=== PATIENT | female | born 1970 | race Two or more races ===

== ENCOUNTER 2018-09-28 19:07 | Inpatient (IN) | payer BC ==
[~2018-09-28] VITALS: Ht 165.1 cm; Wt 58.1 kg
--- NOTE | 2018-09-28 19:30 | NUR ---
BIBF. C/O "BEEN HAVING SWOLLEN LEGS AND YELLOW EYES +CP FOR AROUND X5 DAYS NOW" -SOB -DIZZY -N/V AOX4. AMBULATORY.
[2018-09-28 19:55] LABS: APPEARANCE,URINE Clear (CLEAR); BILIRUBIN,URINE LARGE (NEGATIVE); BLOOD, URINE Negative Ery/uL (NEGATIVE); KETONES,URINE Trace (NEGATIVE); LEUKOCYTE ESTERASE ,URINE Negative (NEGATIVE); NITRITE, URINE Negative (NEGATIVE); PROTEIN,URINE Trace mg/dl (NEGATIVE); UGLUCOSE Negative (NEGATIVE); UROBILINOGEN,URINE 0.2 EU/dL (0.2)
[2018-09-28 19:56] LABS: COLOR,URINE DARK YELLOW (YELLOW)
[2018-09-28 20:02] LABS: BASOPHILS # (AUTO) 0.1 /CMM (0.0-0.2); BASOPHILS % (AUTO) 0.9 % (0.0-2.0); EOSINOPHILS % (AUTO) 1.1 % (0.0-6.0); HEMATOCRIT 42 % (33-45); LYMPHOCYTES # (AUTO) 1.2 /CMM (0.8-4.8); LYMPHOCYTES % (AUTO) 16.8 % (20.0-44.0); MEAN CORPUSCULAR HGB CONC 33 g/dl (31.0-36.0); MEAN CORPUSCULAR VOLUME 96 fL (82-100); MONOCYTES # (AUTO) 0.9 /CMM (0.1-1.30); MONOCYTES % (AUTO) 12.2 % (2.0-12.0); NEUTROPHILS # (AUTO) 4.9 /CMM (1.8-8.9); PLATELET COUNT (AUTO) 139 /CMM (150-450); RED BLOOD CELL COUNT(AUTO) 4.39 MIL/uL (4.0-5.2); WHITE BLOOD COUNT (AUTO) 7.2 K/uL (4.3-11.0)
[2018-09-28 20:11] LABS: BACTERIA,URINE None seen /HPF (None Seen); RBC,URINE 0-2 /HPF (0-2); SQUAMOUS EPITHELIAL CELL,UR Few /HPF (None Seen); WBC,URINE 0-2 /HPF (0-3)
[2018-09-28 20:18] LABS: CALCIUM, SERUM 8.5 mg/dL (8.5-10.1); CREATININE 0.7 mg/dL (0.6-1.3); POTASSIUM 3.9 mmol/L (3.5-5.1)
[2018-09-28 20:24] LABS: ALBUMIN 2.5 g/dL (3.4-5.0); BILIRUBIN,DIRECT 8.4 mg/dL (0.0-0.2); BILIRUBIN,TOTAL 12.5 mg/dL (0.2-1.0); TOTAL PROTEIN, SERUM 6.5 g/dL (6.4-8.2)
[2018-09-28] MEDS ORDERED: IV NS 0.9% 1,000 ML BAG IV ONE (21:00)
--- NOTE | 2018-09-28 23:13 | NUR ---
REPORT GIVEN TO HUMZA BURGOS.
[2018-09-28] MEDS ORDERED: CT SWABBABLE VALVE TRANS SET 1 EA INFUS.SET MC ONE (23:55)
[2018-09-28] MEDS ORDERED: IOHEXOL-300 100 ML VIAL IV ONE (23:55)
[2018-09-28] MEDS ORDERED: IV NS 0.9% 250 ML IV ONE (23:55)
[2018-09-29] MEDS ORDERED: MAG HYDROX/AL HYDROX/SIMETH 30 ML UDC PO PRN
[2018-09-29] MEDS ORDERED: ONDANSETRON HCL/PF 4 MG/2 ML VIAL IVP PRN
[2018-09-29] MEDS ORDERED: ACETAMINOPHEN 325 MG TABLET PO PRN
[2018-09-29] MEDS ORDERED: Z GUARD REMEDY 2 OZ OINT TP PRN
[2018-09-29] MEDS ORDERED: MAGNESIUM HYDROXIDE 30 ML UDC PO PRN
[2018-09-29] MEDS ORDERED: KETOROLAC TROMETHAMINE 10 MG TABLET PO PRN
--- NOTE | 2018-09-29 00:15 | NUR ---
RECEIVED PATIENT FROM ER VIA GURNEY IN STABLE CONDITION. PATIENT AWAKE A/OX4 AND ABLE TO VERBALIZE NEEDS. NO C/O PAIN OR DISCOMFORT. LAC #20 GAUGE INTACT AND PATENT. AT BEDSIDE. CONSENT FOR HIDA OBTAINED. PATIENT CALM AND COMPLIANT WITH NURSING CARE. ENCOURAGED USE OF CALL LIGHT FOR ASSISTANCE AND VERBALIZED GOOD UNDERSTANDING. BED IN LOW LOCK SETTING. ROOM FREE OF CLUTTER AND BELONGINGS KEPT NEAR BEDSIDE. WILL CONTINUE TO MONITOR
[2018-09-29 06:21] LABS: BASOPHILS % (AUTO) 0.3 % (0.0-2.0); EOSINOPHILS % (AUTO) 1.2 % (0.0-6.0); HEMATOCRIT 38 % (33-45); LYMPHOCYTES # (AUTO) 1.1 /CMM (0.8-4.8); LYMPHOCYTES % (AUTO) 16.1 % (20.0-44.0); MEAN CORPUSCULAR HGB CONC 34 g/dl (31.0-36.0); MEAN CORPUSCULAR VOLUME 94 fL (82-100); MONOCYTES # (AUTO) 0.7 /CMM (0.1-1.30); MONOCYTES % (AUTO) 10.6 % (2.0-12.0); NEUTROPHILS # (AUTO) 4.8 /CMM (1.8-8.9); NEUTROPHILS % (AUTO) 71.8 % (43.0-81.0); PLATELET COUNT (AUTO) 118 /CMM (150-450); RED BLOOD CELL COUNT(AUTO) 4.05 MIL/uL (4.0-5.2); WHITE BLOOD COUNT (AUTO) 6.7 K/uL (4.3-11.0)
[2018-09-29 06:43] LABS: PREALBUMIN 5.3 MG/DL (18.0-35.7); THYROID STIMULATING HORMONE 0.473 uIU/mL (0.358-3.74)
[2018-09-29 06:44] LABS: ALBUMIN 2.2 g/dL (3.4-5.0); BILIRUBIN,DIRECT 8.4 mg/dL (0.0-0.2); BILIRUBIN,TOTAL 12.2 mg/dL (0.2-1.0); CALCIUM, SERUM 7.9 mg/dL (8.5-10.1); CREATININE 0.7 mg/dL (0.6-1.3); MAGNESIUM 1.7 mg/dL (1.8-2.4); PHOSPHORUS 2.6 mg/dL (2.5-4.9); POTASSIUM 3.6 mmol/L (3.5-5.1); TOTAL PROTEIN, SERUM 5.7 g/dL (6.4-8.2)
--- NOTE | 2018-09-29 06:48 | NUR ---
MS RN NOTES PATIENT ASLEEP IN BED WITH NO DISTRESS NOTED. PERIPHERAL INTACT AND PATENT. AT BEDSIDE. BED IN LOW LOCK SETTING. ROOM FREE OF CLUTTER AND BELONGINGS KEPT NEAR BEDSIDE. WILL ENDORSE TO ONCOMING SHIFT.
[2018-09-29] MEDS: PANTOPRAZOLE 40 MG TABLET.DR PO SCH (07:30)
[2018-09-29 08:00] VITALS: BP 119/64
--- NOTE | 2018-09-29 10:35 | NUR ---
patient seen by dr. Foley
--- NOTE | 2018-09-29 10:40 | NUR ---
per : hydration LR 150 ml/hr
--- NOTE | 2018-09-29 12:00 | NUR ---
patient picked up for HIDA test by radiology staff
--- NOTE | 2018-09-29 13:10 | NUR ---
patient came back from procedure in stable condition , denies discomfort and pain
[2018-09-29] MEDS: Magnesium 1GM/D5W 100ML PREMIX 100 ML IV SCH ×2 (13:20→16:40)
--- NOTE | 2018-09-29 14:00 | NUR ---
FIDEL result sent to dr. Foley
[2018-09-29 16:00] VITALS: BP 119/70
--- NOTE | 2018-09-29 16:10 | NUR ---
MRI check list obtained and sighed by patient
--- NOTE | 2018-09-29 17:55 | NUR ---
Patient taken for MRSP test by radiology staff
--- NOTE | 2018-09-29 18:55 | NUR ---
Patient came back from MRSP test in stable condition , no distress noted, accompanied by . IV assess remain intact and patent. Call light within reach, safety measures in place. Will endorse to next shift for RUEL.
--- NOTE | 2018-09-29 19:35 | NUR ---
MS/RN OPENING NOTES PT RECEIVED AWAKE, RESTING COMFORTABLY IN BED. ON ROOM AIR, BREATHING EVEN AND UNLABORED. IN NO ACUTE DISTRESS. DENIES SOB AND PAIN AT THIS TIME. IV TO LAC PATENT AND INTACT RUNNING IV MAGNESIUM AT THIS TIME. NO NEEDS EXPRESSED. BED IN LOW/LOCKED POSITION WITH CALL LIGHT IN REACH. HOB ELEVATED. BILAT. UPPER SIDE RAILS IN PLACE. WILL CONTINUE TO MONITOR
[2018-09-29 20:00] VITALS: BP 122/69
[2018-09-29] MEDS: IV LR 1000 ML 1,000 ML IV PRN (23:05)
--- NOTE | 2018-09-30 02:44 | NUR ---
MS/RN NOTES IV TO LAC LEAKING AND PT'S ARM SWOLLEN NON PITTING. IV REMOVED AND ARM ELEVATED ON PILLOW. NEW IV INSERTED TO RFA #22. GOOD BLOOD RETURN NOTED AND FLUSHES WELL. IVF RESUMED. ICE WATER PROVIDED. NO ADDITIONAL NEEDS EXPRESSED AT THIS TIME.
--- NOTE | 2018-09-30 06:54 | NUR ---
MS/RN CLOSING NOTES PT ASLEEP, AT BEDSIDE. RESPONSIVE TO NAME. REMAINS ON ROOM AIR, BREATHING EVEN AND UNLABORED. DENIES SOB AND PAIN AT THIS TIME. NO SIGNIFICANT CHANGES OVERNIGHT. IV TO RFA PATENT AND INTACT RUNNING IVF ORDERED. ALL NEEDS ANTICIPATED. BED REMAINS IN LOW/LOCKED POSITION WITH CALL LIGHT IN REACH, BILAT. UPPER SIDE RAILS IN PLACE AND HOB ELEVATED. WILL ENDORSE TO DAY SHIFT RN RUEL.
[2018-09-30 08:00] VITALS: BP 130/70
[2018-09-30] MEDS: PANTOPRAZOLE 40 MG TABLET.DR PO SCH (08:45)
[2018-09-30] MEDS: IV LR 1000 ML 1,000 ML IV PRN ×2 (08:46→17:48)
--- NOTE | 2018-09-30 11:30 | NUR ---
SPOKE WITH OVER THE PHONE: NEW ORDER ADVANCE DIET TO SOFT AND STAT LIVER FUNCTION TEST
[2018-09-30 12:35] LABS: BILIRUBIN,DIRECT 9.4 mg/dL (0.0-0.2); BILIRUBIN,TOTAL 13.7 mg/dL (0.2-1.0); TOTAL PROTEIN, SERUM 5.5 g/dL (6.4-8.2)
[2018-09-30 12:46] LABS: BASOPHILS % (AUTO) 0.4 % (0.0-2.0); EOSINOPHILS % (AUTO) 1.5 % (0.0-6.0); HEMATOCRIT 39 % (33-45); HEMOGLOBIN 13.3 g/dL (11.5-14.8); LYMPHOCYTES % (AUTO) 17.6 % (20.0-44.0); MEAN CORPUSCULAR HGB CONC 34 g/dl (31.0-36.0); MEAN CORPUSCULAR VOLUME 94 fL (82-100); MONOCYTES # (AUTO) 0.6 /CMM (0.1-1.30); MONOCYTES % (AUTO) 11.5 % (2.0-12.0); NEUTROPHILS # (AUTO) 3.9 /CMM (1.8-8.9); RED BLOOD CELL COUNT(AUTO) 4.15 MIL/uL (4.0-5.2); WHITE BLOOD COUNT (AUTO) 5.6 K/uL (4.3-11.0)
[2018-09-30 12:52] LABS: BILIRUBIN,DIRECT 9.2 mg/dL (0.0-0.2); BILIRUBIN,TOTAL 13.8 mg/dL (0.2-1.0)
--- NOTE | 2018-09-30 13:00 | NUR ---
PATIENT TOLERATED SOFT DIET WELL.
[2018-09-30 13:55] LABS: PLATELET COUNT (AUTO) 110 /CMM (150-450)
--- NOTE | 2018-09-30 14:35 | NUR ---
STOOL SAMPLE SENT TO LABORATORY
--- NOTE | 2018-09-30 14:49 | NUR ---
PATIENT NPO EXEPT MEDS AND ICED WATER PER ISMAEL N.P. DUE TO STOMACH DISTENTION AFTER FOOD
[2018-09-30 15:38] LABS: OCCULT BLOOD STOOL POSITIVE (NEGATIVE)
[2018-09-30 16:00] VITALS: BP 112/62
--- NOTE | 2018-09-30 19:22 | NUR ---
PATIENT REMAINS ON ROOM AIR, BREATHING EVEN AND UNLABORED. IV TO RFA PATENT AND INTACT RUNNING IVF ORDERED. ALL NEEDS ANTICIPATED. BED REMAINS IN LOW/LOCKED POSITION WITH CALL LIGHT IN REACH, BILAT. UPPER SIDE RAILS IN PLACE AND HOB ELEVATED.
--- NOTE | 2018-09-30 19:25 | NUR ---
MS RN OPENING NOTES Received patient A/O x4, awake on bed, with family at bedside. On RA, no SOB/respiratory distress noted. No complaints made at this time. Call light within easy reach. Will continue to monitor accordingly.
[2018-09-30 20:00] VITALS: BP 121/73
--- NOTE | 2018-10-01 06:36 | NUR ---
MS RN CLOSING NOTES Patient asleep on bed at this time, easily awaken. On RA, no SOB/respiratory distress noted. Still jaudice, with minimal complaints of pain managed with warm packs, no pain meds asked. All due meds given as ordered, no ASE noted. With patent peripheral IV line RFA G#22 with LR infusing well @ 150ml/hr. All nursing needs attended, no new unusualities noted. Kept bed low and locked, call light within easy reach. Endorsed to the next shift.
[2018-10-01 06:48] LABS: BASOPHILS % (AUTO) 0.7 % (0.0-2.0); EOSINOPHILS % (AUTO) 2.3 % (0.0-6.0); HEMATOCRIT 38 % (33-45); HEMOGLOBIN 13.1 g/dL (11.5-14.8); LYMPHOCYTES # (AUTO) 1.2 /CMM (0.8-4.8); LYMPHOCYTES % (AUTO) 20.9 % (20.0-44.0); MEAN CORPUSCULAR HGB CONC 35 g/dl (31.0-36.0); MEAN CORPUSCULAR VOLUME 94 fL (82-100); MONOCYTES # (AUTO) 0.7 /CMM (0.1-1.30); MONOCYTES % (AUTO) 11.3 % (2.0-12.0); NEUTROPHILS # (AUTO) 3.7 /CMM (1.8-8.9); NEUTROPHILS % (AUTO) 64.8 % (43.0-81.0); PLATELET COUNT (AUTO) 103 /CMM (150-450); RED BLOOD CELL COUNT(AUTO) 4.06 MIL/uL (4.0-5.2); WHITE BLOOD COUNT (AUTO) 5.8 K/uL (4.3-11.0)
[2018-10-01 07:06] LABS: ALBUMIN 1.9 g/dL (3.4-5.0); CALCIUM, SERUM 7.2 mg/dL (8.5-10.1); CREATININE 0.7 mg/dL (0.6-1.3); MAGNESIUM 1.8 mg/dL (1.8-2.4); PHOSPHORUS 2.9 mg/dL (2.5-4.9); POTASSIUM 3.8 mmol/L (3.5-5.1); TOTAL PROTEIN, SERUM 5.5 g/dL (6.4-8.2)
[2018-10-01 08:00] VITALS: BP 89/53
[2018-10-01] MEDS: IV LR 1000 ML 1,000 ML IV PRN (08:38)
[2018-10-01] MEDS: PANTOPRAZOLE 40 MG TABLET.DR PO SCH (08:40)
[2018-10-01 09:10] LABS: IMMUNOGLOBULIN A, SERUM 522 mg/dL (87-352); IMMUNOGLOBULIN G, SERUM 2008 mg/dL (700-1600); IMMUNOGLOBULIN M, SERUM 166 mg/dL (26-217)
[2018-10-01 16:00] VITALS: BP 129/69
--- NOTE | 2018-10-01 17:15 | NUR ---
received a call from [facility] (Linda). She requested patients recent labs and H&P to start transfer process. Will obtain authorization from the patient.
--- NOTE | 2018-10-01 17:24 | NUR ---
Authorization for use of health information sighed by patient and placed in the chart. Requested information sent to [facility] ( fax [phone]). Conformation placed to the chart.
--- NOTE | 2018-10-01 18:56 | NUR ---
Patient on RA. Still jaundiced, with no complains of pain. All needs attended. With patent peripheral IV line RFA G#22 with LR infusing @ 150ml/hr. Kept bed low and locked, call light within reach. Possible transfer to [facility] or tomorrow. Will endorse to the next shift for quan .
--- NOTE | 2018-10-01 19:30 | NUR ---
MS/RN OPENING NOTES PT RECEIVED AWAKE, SIGNIFICANT OTHER AT BEDSIDE. A/OX3. ON ROOM AIR, BREATHING EVEN AND UNLABORED. DENIES SOB AND PAIN AT THIS TIME. CURRENTLY MENSTRUATING. IV TO RFA PATENT AND INTACT, IVF ON HOLD PER PT REQUEST AT THE MOMENT. NO NEEDS EXPRESSED AT THIS TIME. PLANNING TO TRANSFER TO [facility] OR TOMORROW. BED IN LOW/LOCKED POSITION WITH CALL LIGHT IN REACH, BILAT. UPPER SIDE RAILS IN PLACE. HOB ELEVATED. ABDOMEN SLIGHTLY DISTENDED, TENDER ON THE RUQ. WILL CONTINUE TO MONITOR
[2018-10-01 20:00] VITALS: BP 114/70
--- NOTE | 2018-10-01 20:10 | NUR ---
MS/RN NOTES PAGED CM PER PT REQUEST. PT WANTS TO KNOW IF SHE WILL BE TRANSFERRED TO [facility]. PT MADE AWARE MOST LIKELY NOT [facility]
--- NOTE | 2018-10-01 21:25 | NUR ---
MARÍA GUEVARA, CLOUD ENGINEER AT BEDSIDE ASSESSED PT, ALL QUESTIONS/CONCERNS ANSWERED. WITH ORDERS TO CHANGE DIET FROM FULL LIQUIDS TO CLEAR. WILL CARRY OUT.
--- NOTE | 2018-10-01 21:30 | NUR ---
MS/RN NOTES TECH AT BEDSIDE FOR ECHO
--- NOTE | 2018-10-02 06:36 | NUR ---
TRANSFER UPDATE RECEIVED A CALL FROM FLORA OAKES FROM [facility]. PT HAS BEEN ACCEPTED, WAITING FOR BED TO BECOME AVAILABLE. THEY HAVE HIGH CENSUS AND ANTICIPATE MANY DISCHARGES TODAY, BED MAY BECOME AVAILABLE TODAY. NO CHANGES OVERNIGHT, VITAL SIGNS STABLE. STILL WAITING FOR SOME LAB WORKUP TO RESULT. FLORA IS AWARE. CHAMP WILL KEEP IN TOUCH
--- NOTE | 2018-10-02 06:57 | NUR ---
MS/RN CLOSING NOTES PT RESTING COMFORTABLY IN BED. REMAINS ON ROOM AIR, BREATHING EVEN AND UNLABORED. DENIES SOB AND PAIN AT THIS TIME. STILL WITH ABDOMINAL DISTENTION AND RUQ/EPIGASTRIC TENDERNESS UPON PALPATION. REMAINS ON CLEAR LIQUID DIET AND TOLERATING WELL. NO N/V/D. IV TO RFA PATENT AND INTACT. NO SIGNIFICANT CHANGES OVERNIGHT. ALL NEEDS MET. PLANNING TO TRANSFER TO [facility] TODAY IF BED BECOMES AVAILABLE. BED IN LOW/LOCKED POSITION WITH CALL LIGHT IN REACH, BILAT. UPPER SIDE RAILS IN PLACE AND HOB ELEVATED. WILL ENDORSE TO DAY SHIFT RN RUEL.
--- NOTE | 2018-10-02 07:30 | NUR ---
MS RN OPENING NOTES RECEIVED PT LAYING IN BED W/ HOB SLIGHTLY ELEVATED. PT IS EASILY AROUSABLE. PT IS A/O X4, AFEBRILE. RESPIRATIONS ARE EVEN AND UNLABORED, NOT IN ANY ACUTE DISTRESS NOTED. PT DENIES ANY PAIN AT THIS TIME, NO C/O SOB,N/V. IV SITE TO RFA INTACT, NO INFILTRATION NOTED. DRESSING KEPT CLEAN AND DRY. SAFETY MEASURES ARE IN PLACE. INSTRUCTED PT TO USE CALL LIGHT WHEN ASSISTANCE IS NEEDED, CALL LIGHT IS LEFT WITHIN REACH. WILL MONITOR THROUGHOUT SHIFT FOR CONTINUITY OF CARE.
[2018-10-02] MEDS: PANTOPRAZOLE 40 MG TABLET.DR PO SCH (07:59)
[2018-10-02 08:00] VITALS: BP 127/79
--- NOTE | 2018-10-02 10:35 | NUR ---
MS RN NOTES-- PT SEEN AND EXAMINED BY SHAMAR ALVAREZ.
[2018-10-02 16:00] VITALS: BP 114/68
[2018-10-02 16:55] LABS: BASOPHILS % (AUTO) 0.3 % (0.0-2.0); EOSINOPHILS % (AUTO) 1.8 % (0.0-6.0); HEMATOCRIT 42 % (33-45); HEMOGLOBIN 14.2 g/dL (11.5-14.8); LYMPHOCYTES # (AUTO) 0.8 /CMM (0.8-4.8); LYMPHOCYTES % (AUTO) 13.4 % (20.0-44.0); MEAN CORPUSCULAR HGB CONC 34 g/dl (31.0-36.0); MEAN CORPUSCULAR VOLUME 95 fL (82-100); MONOCYTES # (AUTO) 0.4 /CMM (0.1-1.30); MONOCYTES % (AUTO) 6.5 % (2.0-12.0); NEUTROPHILS # (AUTO) 4.5 /CMM (1.8-8.9); PLATELET COUNT (AUTO) 118 /CMM (150-450); RED BLOOD CELL COUNT(AUTO) 4.45 MIL/uL (4.0-5.2); WHITE BLOOD COUNT (AUTO) 5.7 K/uL (4.3-11.0)
[2018-10-02 17:06] LABS: CALCIUM, SERUM 7.4 mg/dL (8.5-10.1); CREATININE 0.7 mg/dL (0.6-1.3); POTASSIUM 3.2 mmol/L (3.5-5.1)
[2018-10-02] MEDS ORDERED: PHYTONADIONE INJ 10 MG/1 ML AMPUL SQ STA (17:22)
[2018-10-02 17:29] LABS: ALBUMIN 2.3 g/dL (3.4-5.0); BILIRUBIN,DIRECT 10.5 mg/dL (0.0-0.2); BILIRUBIN,TOTAL 14.5 mg/dL (0.2-1.0); TOTAL PROTEIN, SERUM 6.7 g/dL (6.4-8.2)
--- NOTE | 2018-10-02 17:42 | NUR ---
MS RN NOTES--WAITING A CALL BACK FROM DR. BRIDGES RE: RECENT LABS INCLUDING K3.2 AND ELEVATED LIPID PANEL. STILL WAITING A CALL BACK.
--- NOTE | 2018-10-02 17:47 | NUR ---
MS RN NOTES-- RECEIVED A CALL FROM RADIOLOGY STATING THERE IS NO RADIOLOGIST TO DO LIVER BIOPSY AND US GUIDED PARACENTESIS. NOTIFIED SHAMAR DANIEL AND STATING "OKAY TOMORROW." NOTIFIED PT.
[2018-10-02] MEDS ORDERED: ZOSYN IVPB 3.375 G in IV D5W 50ml IV ONE (18:00)
[2018-10-02] MEDS: IV LR 1000 ML 1,000 ML IV PRN (18:27)
--- NOTE | 2018-10-02 18:42 | NUR ---
MS RN CLOSING NOTES ALL DUE MEDS GIVEN, NEEDS MET AND RENDERED. PT IS A/O X4, AFEBRILE. RESPIRATIONS ARE EVEN AND UNLABORED, NOT IN ANY ACUTE DISTRESS NOTED. PT DENIES ANY PAIN AT THIS TIME, NO C/O SOB, N/V. IV SITE TO RFA INTACT, NO INFILTRATION NOTED. DRESSING KEPT CLEAN AND DRY. SAFETY MEASURES ARE IN PLACE. REMINDED PT TO USE CALL LIGHT WHEN ASSISTANCE IS NEEDED, CALL LIGHT IS LEFT WITHIN REACH. WILL ENDORSE TO NEXT SHIFT FOR CONTINUITY OF CARE.
--- NOTE | 2018-10-02 19:20 | NUR ---
MS/RN OPENING NOTES PT AWAKE, FAMILY AT BEDSIDE. ON ROOM AIR, BREATHING EVEN AND UNLABORED. DENIES SOB AND PAIN AT THIS TIME. IN NO ACUTE DISTRESS. IV TO RFA PATENT AND INTACT RUNNING IVF ORDERED. PT WANTS TO DISCUSS WITH FAMILY REGARDING SIGNING CONSENT FOR PARACENTESIS AND LIVER BIOPSY. AWARE THAT SHE WILL HAVE TO BE NPO POST MIDNIGHT. BED IN LOW/LOCKED POSITION WITH CALL LIGHT IN REACH. BILAT. UPPER SIDE RAILS IN PLACE. HOB ELEVATED. FRESH PITCHER OF WATER PROVIDED, NO ADDITIONAL NEEDS EXPRESSED AT THIS TIME. WILL CONTINUE TO MONITOR
--- NOTE | 2018-10-02 19:53 | NUR ---
MS/RN NOTES MARÍA IBANEZ AWARE THAT WE ARE STILL WAITING FOR A BED AT [facility]. SHE WANTS TO TRY TO TRANSFER HER SOMEWHERE ELSE. CALLED [employer] WITH NO ANSWER. MARÍA NOTIFIED, WILL FOLLOW UP WITH CM IN THE MORNING IF NO CALL BACK TONIGHT. Addendum: 10/02/18 at 2035 by BRAD FRANCISCO RN PT MADE AWARE THAT SHAMAR DANIEL WOULD LIKE CM TO TRY TO TRANSFER HER ELSEWHERE. PT VERBALIZED UNDERSTANDING.
[2018-10-02 20:00] VITALS: BP 107/70
--- NOTE | 2018-10-02 21:13 | NUR ---
MS/RN NOTES MARÍA GUEVARA AT BEDSIDE TO ASSESS PT'S AND DISCUSS LABS/TEST/PROCEDURES AT DEPTH. ALL QUESTIONS ANSWERED. WITH ORDERS FOR STAT LACTIC ACID AND HEPATITIS C RNA. US GALLBLADDER ORDERED FOR WORSENING EDEMA/DISTENTION. REPEAT COAGS IN AM SINCE PT RECEIVED VITAMIN K THIS AFTERNOON. FLAGYL 500MG IV Q8H. STRICT I&O'S. ALL ORDERS READBACK PER PROTOCOL. WILL CARRY OUT.
--- NOTE | 2018-10-02 21:14 | NUR ---
MS/RN NOTES PER MARÍA, OKAY TO CONTINUE FLUIDS AT ORDERED RATE.
--- NOTE | 2018-10-02 21:20 | NUR ---
MICE RAISER AT BEDSIDE FOR US GALLBLADDER
[2018-10-02] MEDS ORDERED: POTASSIUM CHLORIDE 10 MEQ/50 ML PREMIXED IVPB FOR PERIPHERAL LINE IV ONE (22:00)
[2018-10-02] MEDS ORDERED: METRONIDAZOLE 500MG/ NS 100ML 100 ML IV ONE (22:25)
[2018-10-02] MEDS: POTASSIUM CL. PREMIX PERIPHER. 50 ML IV SCH (22:27)
[2018-10-02] MEDS: METRONIDAZOLE 500MG/ NS 100ML 500 MG in PREMIX 1 EA IV SCH (23:44)
[2018-10-03] VITALS (8 sets, daily range): BP systolic 92–119; BP diastolic 56–74
[2018-10-03] MEDS: POTASSIUM CL. PREMIX PERIPHER. 50 ML IV SCH ×3 (00:47→03:22)
[2018-10-03] MEDS: PIPERACILLIN /TAZOBACTAM 3.375 G in IV D5W 100 ML IV SCH ×3 (02:38→17:04)
[2018-10-03 06:26] LABS: BASOPHILS % (AUTO) 0.4 % (0.0-2.0); EOSINOPHILS % (AUTO) 1.7 % (0.0-6.0); HEMATOCRIT 40 % (33-45); HEMOGLOBIN 13.4 g/dL (11.5-14.8); LYMPHOCYTES # (AUTO) 0.8 /CMM (0.8-4.8); LYMPHOCYTES % (AUTO) 11.5 % (20.0-44.0); MEAN CORPUSCULAR HGB CONC 34 g/dl (31.0-36.0); MEAN CORPUSCULAR VOLUME 94 fL (82-100); MONOCYTES # (AUTO) 0.6 /CMM (0.1-1.30); MONOCYTES % (AUTO) 9.5 % (2.0-12.0); NEUTROPHILS % (AUTO) 76.9 % (43.0-81.0); PLATELET COUNT (AUTO) 98 /CMM (150-450); WHITE BLOOD COUNT (AUTO) 6.5 K/uL (4.3-11.0)
--- NOTE | 2018-10-03 06:41 | NUR ---
MS/RN NOTES RECEIVED CALL FROM SALIMA AT [facility]. UPDATES PROVIDED. STILL NO BED AVAILABLE YET. THEY WILL CALL ONCE ONE BECOMES AVAILABLE
[2018-10-03] MEDS: PANTOPRAZOLE 40 MG TABLET.DR PO SCH (06:46)
[2018-10-03] MEDS: METRONIDAZOLE 500MG/ NS 100ML 500 MG in PREMIX 1 EA IV SCH ×3 (06:46→21:56)
[2018-10-03 07:02] LABS: BILIRUBIN,TOTAL 13.5 mg/dL (0.2-1.0); CALCIUM, SERUM 7.6 mg/dL (8.5-10.1); CREATININE 0.8 mg/dL (0.6-1.3); POTASSIUM 4.6 mmol/L (3.5-5.1); TOTAL PROTEIN, SERUM 5.9 g/dL (6.4-8.2)
--- NOTE | 2018-10-03 07:30 | NUR ---
MS RN NOTES-- PT WAS SEEN AND EXAMINED BY DR. BEAN. RELAYED INR RESULTS TO DR. BEAN AND RECOMMENDED TO GIVE FFP. WILL NOTIFY SHAMAR DANIEL.
--- NOTE | 2018-10-03 07:43 | NUR ---
MS/RN CLOSING NOTES PT AWAKE, RESTING COMFORTABLY IN BED. A/OX3. ON ROOM AIR, BREATHING EVEN AND UNLABORED. IN NO ACUTE DISTRESS. DENIES SOB AND PAIN AT THIS TIME. EPIGASTRIC AND RUQ TENDERNESS UPON PALPATION, DISTENDED ABDOMEN. MARÍA AWARE. CONSENTS FOR US GUIDED PARACENTESIS AND LIVER BIOPSY SIGNED AND PLACED IN THE CHART. KEPT NPO AFTER MIDNIGHT. PT VOIDED X2 WITH TOTAL OUTPUT OF 125ML. IV TO RFA PATENT AND INTACT RUNNING IVF ORDERED. NO S/S OF BLEEDING NOTED. ALL NEEDS MET. BED IN LOW/LOCKED POSITION WITH CALL LIGHT IN REACH, BILAT. UPPER SIDE RAILS IN PLACE. HOB ELEVATED. ENDORSED TO DAY SHIFT RN RUEL. DR. BEAN AT BEDSIDE TO ASSESS BEDSIDE.
--- NOTE | 2018-10-03 07:55 | NUR ---
MS RN OPENING NOTES RECEIVED PT LAYING IN BED W/ HOB SLIGHTLY ELEVATED. PT IS AWAKE, ALERT AND ORIENTED X4. RESPIRATIONS ARE EVEN AND UNLABORED, NOT IN ANY ACUTE DISTRESS NOTED. PT DENIES ANY PAIN AT THIS TIME, NO C/O SOB,N/V. IV SITE TO RFA INTACT, NO INFILTRATION NOTED. DRESSING KEPT CLEAN AND DRY. SAFETY MEASURES ARE IN PLACE. INSTRUCTED PT TO USE CALL LIGHT WHEN ASSISTANCE IS NEEDED, CALL LIGHT IS LEFT WITHIN REACH. WILL MONITOR THROUGHOUT SHIFT FOR CONTINUITY OF CARE.
--- NOTE | 2018-10-03 08:25 | NUR ---
MS RN NOTES-- CALLED SHAMAR DANIEL TO RELAY INR RESULTS OF 2.24 PT WONT BE ABLE TO GET PROCEDURES DONE TODAY FOR INCREASED INR. STILL WAITING A CALL BACK.
--- NOTE | 2018-10-03 08:36 | NUR ---
ENTERED TEST EXAMS ON THIS PATIENT. PLEASE DISREGARD.
[2018-10-03] MEDS: Magnesium 1GM/D5W 100ML PREMIX 100 ML IV SCH ×2 (08:54→10:06)
--- NOTE | 2018-10-03 09:50 | NUR ---
MS RN NOTES-- RECEIVED A CALL BACK FROM SHAMAR DANIEL W/ ORDERS TO GIVE ANOTHER DOSE OF VIT K AND REPEAT INR RESULTS. NOTIFIED SHAMAR DANIEL THAT DR. BEAN RECOMMENDED TO GIVE FFP.
--- NOTE | 2018-10-03 11:28 | NUR ---
MS RN NOTES-- RECEIVED A CALL BACK FROM MARÍA STATING "OKAY, LETS DO ONE UNIT FFP AND DO A REPEAT INR." ORDERS READ BACK AND VERIFIED. NOTED AND CARRIED OUT.
--- NOTE | 2018-10-03 12:09 | NUR ---
MS RN NOTES-- CALLED SHAMAR DANIEL TO SEE IF PT CAN EAT PT STATES "IF THE PROCEDURES ARE NOT HAPPENING RIGHT NOW, CAN I EAT?" PER MARÍA, "NO, I WANT HER TO HAVE HER PROCEDURES TODAY IF WE CAN CORRECT HER INR. KEEP NPO. " PT MADE AWARE.
--- NOTE | 2018-10-03 12:30 | NUR ---
MS RN NOTES-- PT WAS SEEN BY DR. BRIDGES W/ ORDERS TO D/C CURRENT IV FLUIDS AND TO CHANGE TO D5LR @50ML/HR. ORDERS READ BACK AND VERIFIED, NOTED AND CARRIED OUT.
--- NOTE | 2018-10-03 12:50 | NUR ---
MS RN NOTES-- RECEIVED A CALL FROM THE RADIOLOGIST STATING THAT HE RECOMMENDS DOING THE PARACENTESIS AND LIVER BIOPSY TOMORROW MORNING WHICH HE ARRIVES AT 0800. TOLD HIM WILL NOTIFY SHAMAR DANIEL.
--- NOTE | 2018-10-03 12:54 | NUR ---
MS RN NOTES-- CALLED SHAMAR DANIEL RE: RADIOLOGIST RECOMMENDATIONS OF DOING PROCEDURES TOMORROW D/T FFP TRANSFUSION AND REPEAT INR. STILL WAITING A CALL BACK.
[2018-10-03 13:07] LABS: *EBV AB VCA, IgG 86.3 U/mL (0.0-17.9); *EBV AB VCA, IgM <36.0 U/mL (0.0-35.9)
[2018-10-03] MEDS ORDERED: IV D5 LR 1,000 ML IV PRN (13:30)
--- NOTE | 2018-10-03 14:40 | NUR ---
MS RN NOTES-- NOTIFIED DR. BRIDGES RE: RADIOLOGIST RECOMMENDATIONS FOR DOING PROCEDURES TOMORROW MORNING WE ARE STILL WAITING FOR FFP TO BE AVAILABLE AND TO REPEAT INR. PER DR. BRIDGES, "OKAY FEED HER AND PLAN FOR PROCEDURE TOMORROW." DIET RESUMED. PT MADE AWARE AND AGREED.
--- NOTE | 2018-10-03 16:52 | NUR ---
MS RN NOTES-- CALLED BLOOD BANK TO FOLLOW UP ON FFP. PER JERALD, "STILL WAITING." WILL CONTINUE TO FOLLOW UP.
--- NOTE | 2018-10-03 16:55 | NUR ---
MS RN NOTES-- RECEIVED A CALL BACK FROM SHAMAR DANIEL AND STATED "OKAY, THANK YOU."
[2018-10-03 18:08] LABS: CMV, IgM <30.0 AU/mL (0.0-29.9)
--- NOTE | 2018-10-03 18:50 | NUR ---
MS RN NOTES-- PLASMA TRANSFUSION STARTED. BP: 116/67, HR 97, T97.9, SPO2 100%. WILL MONITOR FOR ASE.
--- NOTE | 2018-10-03 19:05 | NUR ---
RN MS OPENING NOTES RECEIVED PATIENT IN BED AWAKE ALERT AND ORIENTED X 4,RESPIRATIONS EVEN AND UNLABORED WITH EQUAL RISE AND FALL OF CHEST, C/O ABD DISCOMFORT HOWEVER DOES NOT WANT PAIN MEDICATION AT THIS TIME, IV SITE TO RIGHT FA #22 G INTACT AND PATENT NO REDNESS, NO INFILTRATION PRESENT IVF RUNNING ORDERED, PATIENT AWARE OF NPO STATUS AT MIDNIGHT. ORIENTED TO STAFF AND CALL LIGHT AND KEPT WITHIN REACH, SAFETY PRECAUTIONS IN PLACE,LOW BED AND LOCKED, FLUIDS OFFERED, ALL NEEDS ATTENDED AT THIS TIME, WILL CONTINUE TO MONITOR AND ATTEND TO NEEDS.
--- NOTE | 2018-10-03 19:20 | NUR ---
MS RN NOTES-- PLASMA TRANSFUSION FINISHED. NO ASE NOTED. VITALS WNL.
--- NOTE | 2018-10-03 19:32 | NUR ---
MS RN CLOSING NOTES ALL DUE MEDS GIVEN, NEEDS MET AND RENDERED. PT IS A/O X4, AFEBRILE. RESPIRATIONS ARE EVEN AND UNLABORED, NOT IN ANY ACUTE DISTRESS NOTED. PT DENIES ANY PAIN AT THIS TIME, NO C/O SOB, N/V. IV SITE TO RFA INTACT, NO INFILTRATION NOTED. DRESSING KEPT CLEAN AND DRY. NO ASE NOTED S/P FFP TRANSFUSION. SAFETY MEASURES ARE IN PLACE. FAMILY AT BEDSIDE. REMINDED PT TO USE CALL LIGHT WHEN ASSISTANCE IS NEEDED, CALL LIGHT IS LEFT WITHIN REACH. WILL ENDORSE TO NEXT SHIFT FOR CONTINUITY OF CARE.
--- NOTE | 2018-10-03 20:35 | NUR ---
RN MS NOTES SEEN BY MARÍA INVESTIGATION OFFICER WHOM DISCUSSED PLAN OF CARE, FAMILY AT BEDSIDE, PATIENT AND FAMILY VERBALIZES UNDERSTANDING OF PLAN OF CARE. FAMILY AWARE AWAITING TRANSFER POSSIBLY TO [facility] IF CALLED FOR BED FOR HIGHER LEVEL OF SPECIALITY CARE. PATIENT EXPRESSED ABD PAIN. PER MARÍA NEW ORDER FOR KUB ABDOMINAL XRAY AND MADE AWARE OF PT/INR RESULTS WITH NEW ORDER TO TRANSFUSE 1 UNIT OF FFP. CONSENTS OBTAINED FOR KUB. ALL NEEDS ATTENDED AT THIS TIME.
--- NOTE | 2018-10-03 23:36 | NUR ---
RN MS NOTES FFP PLASMA STARTED. VS WNL. WILL CONTINUE TO MONITOR.
--- NOTE | 2018-10-03 23:51 | NUR ---
RN MS NOTES FFP RUNNING NO ADVERSE REACTIONS, VITALS SIGNS REMAIN WITHIN NORMAL LIMITS.
[2018-10-04 00:06] VITALS: BP 101/60
--- NOTE | 2018-10-04 00:06 | NUR ---
RN MS NOTES FFP TRANSFUSION COMPLETE, NO ADVERSE REACTIONS AFEBRILE VS REMAINED WNL THROUGHOUT TRANSFUSION.
--- NOTE | 2018-10-04 01:56 | NUR ---
RN MS NOTES RECEIVED CALL FROM JUDI FROM [facility] STATING " NO BED AVAILABLE".
[2018-10-04] MEDS: PIPERACILLIN /TAZOBACTAM 3.375 G in IV D5W 100 ML IV SCH ×3 (02:15→18:00)
[2018-10-04] MEDS: METRONIDAZOLE 500MG/ NS 100ML 500 MG in PREMIX 1 EA IV SCH ×2 (05:52→14:07)
[2018-10-04 07:17] LABS: BASOPHILS % (AUTO) 0.3 % (0.0-2.0); EOSINOPHILS % (AUTO) 2.4 % (0.0-6.0); HEMATOCRIT 35 % (33-45); LYMPHOCYTES # (AUTO) 0.8 /CMM (0.8-4.8); LYMPHOCYTES % (AUTO) 17.1 % (20.0-44.0); MEAN CORPUSCULAR HGB CONC 35 g/dl (31.0-36.0); MEAN CORPUSCULAR VOLUME 94 fL (82-100); MONOCYTES # (AUTO) 0.6 /CMM (0.1-1.30); MONOCYTES % (AUTO) 13.1 % (2.0-12.0); NEUTROPHILS # (AUTO) 3.1 /CMM (1.8-8.9); NEUTROPHILS % (AUTO) 67.1 % (43.0-81.0); PLATELET COUNT (AUTO) 85 /CMM (150-450); RED BLOOD CELL COUNT(AUTO) 3.68 MIL/uL (4.0-5.2); WHITE BLOOD COUNT (AUTO) 4.6 K/uL (4.3-11.0)
[2018-10-04 07:23] LABS: BILIRUBIN,TOTAL 13.5 mg/dL (0.2-1.0); CALCIUM, SERUM 7.3 mg/dL (8.5-10.1); CREATININE 0.7 mg/dL (0.6-1.3); MAGNESIUM 1.9 mg/dL (1.8-2.4); PHOSPHORUS 2.9 mg/dL (2.5-4.9); POTASSIUM 4.2 mmol/L (3.5-5.1); TOTAL PROTEIN, SERUM 5.7 g/dL (6.4-8.2)
[2018-10-04] MEDS: PANTOPRAZOLE 40 MG TABLET.DR PO SCH (07:30)
--- NOTE | 2018-10-04 07:30 | NUR ---
MS RN OPENING NOTES RECEIVED PATIENT AWAKE IN BED IN NO ACUTE SIGNS OF DISTRESS. A/O X4. ABLE TO MAKE NEEDS KNOWN, DENIES PAIN OR ANY DISCOMFORTS AT THIS TIME. ON ROOM AIR, RESPIRATIONS EVEN AND UNLABORED. NPO STATUS MAINTAINED. IV ACCESS ON TO LFA G#22 INTACT AND PATENT, IVF INFUSING ORDERED, NO S/S OF INFILTRATIONS NOTED. SAFETY PRECAUTIONS IN PLACE. BED IN LOW LOCKED POSITION WITH SR UP X2. CALL LIGHT WITHIN REACH. WILL CONTINUE TO MONITOR ACCORDINGLY.
--- NOTE | 2018-10-04 07:31 | NUR ---
RN MS CLOSING NOTES PATIENT IN BED AWAKE ALERT AND ORIENTED X 4,RESPIRATIONS EVEN AND UNLABORED WITH EQUAL RISE AND FALL OF CHEST, IV SITE TO RIGHT FA #22 G INTACT AND PATENT NO REDNESS, NO INFILTRATION PRESENT IVF RUNNING ORDERED, NPO STATUS AT MIDNIGHT. CALL LIGHT KEPT WITHIN REACH, SAFETY PRECAUTIONS IN PLACE,LOW BED AND LOCKED, ALL NEEDS ATTENDED AT THIS TIME, WILL CONTINUE TO MONITOR AND ATTEND TO NEEDS. ABX RUNNING ORDERED, RECEIVED CALL FROM JOS FROM [facility] ACCEPTING PATIENT AWAITING BED AND TRANSFER SUMMARY . PATIENT MADE AWARE ,ENDORSE TO NEXT SHIFT FOR CONTINUITY OF CARE.
[2018-10-04 08:00] VITALS: BP 104/70
[2018-10-04 08:27] LABS: EOSINOPHILS % (MANUAL) 1 % (0-4); LYMPHOCYTES % (MANUAL) 19 % (16-48); MONOCYTES % (MANUAL) 11 % (0-11.0); NEUTROPHILS % (MANUAL) 69 (42-76)
[2018-10-04] MEDS ORDERED: METR-147 IV (11:21)
[2018-10-04] MEDS ORDERED: ONDA4VIA23 IVP (11:21)
[2018-10-04] MEDS ORDERED: PANT40TA2 PO (11:21)
[2018-10-04] MEDS ORDERED: PIPE3.377 IV (11:21)
--- NOTE | 2018-10-04 11:51 | NUR ---
RN NOTES PATIENT FOR TRANSFER TO [facility] TODAY. REPORT GIVEN TO NURSE TRISTEN ROMEO AND SAID THAT PT WILL GO TO [address] [place] [address] ROOM [id number].
[2018-10-04 15:10] LABS: *SPE A/G RATIO 0.8 (0.7-1.7); *SPE ALBUMIN 2.5 g/dL (2.9-4.4); *SPE ALPHA-1-GLOBULIN 0.1 g/dL (0.0-0.4); *SPE ALPHA-2-GLOBULIN 0.4 g/dL (0.4-1.0); *SPE BETA GLOBULIN 0.5 g/dL (0.7-1.3); *SPE GLOBULIN, TOTAL 3.2 g/dL (2.2-3.9); *SPE M-SPIKE 0.5 g/dL (Not Observed); *SPEGAMMA GLOBULIN 2.2 g/dL (0.4-1.8)
--- NOTE | 2018-10-04 17:51 | NUR ---
RN NOTES DR SIMMS CAME AND SPOKE TO PT AND SAID THAT PT IS POSITIVE FOR ACUTE HEPATITIS B. DR SIMMS WANTS TO CONTINUE CARE IN THIS HOSPITAL BUT PT REFUSED AND STILL WANTS TO BE TRANSFERRED TO [facility].
--- NOTE | 2018-10-04 19:23 | NUR ---
RN DISCHARGED NOTES PT DISCHARGED /TRANSFERRED TO [facility] IN STABLE CONDITION. A/O X4. ABLE TO MAKE NEEDS KNOWN. AMBULATORY. V/S TAKEN, STABLE AND RECORDED. SKIN IS INTACT. ALL BELONGINGS ACCOUNTED FOR. DISCHARGE INSTRUCTIONS GIVEN TO PT AND VERBALIZED UNDERSTANDING. PT LEFT UNIT VIA GURNEY ACCOMPANIED BY 2 HIGH SCHOOL ASSISTANT FOOTBALL COACH AT 1800. NURSE WOOD DOWEL MACHINE OPERATOR AWARE OF DISCHARGE.
[2018-10-05 12:07] LABS: ANTI-MITOCHONDRIAL AB <20.0 Units (0.0-20.0); VARICELLA ZOSTER IgG 1324 index (Immune >165)
[2018-10-07 15:14] LABS: *HIV-1 RNA BY PCR <20 copies/mL (.)
[2018-10-08 13:07] LABS: HIV-2 AB EIA Negative (Neg:<1.00)
== END 2018-10-04 18:00 | disposition short-term general hospital (02) | DRG 441 ==
LOC: ER 19:12 → MEDSG2 23:36
PROVIDERS: ADMIT Registered Nurse; ATTEND Hospitalist
PROC: 30233N1 Transfusion of Nonautologous Red Blood Cells into Peripheral Vein, Percutaneous Approach (ICD-10-PCS; principal; 2018-10-03)
DX: B19.9 Unspecified viral hepatitis without hepatic coma (principal); K85.90 Acute pancreatitis without necrosis or infection, unspecified; E43 Unspecified severe protein-calorie malnutrition; R18.8 Other ascites; D68.59 Other primary thrombophilia; D68.9 Coagulation defect, unspecified; K76.0 Fatty (change of) liver, not elsewhere classified; D69.6 Thrombocytopenia, unspecified; D25.9 Leiomyoma of uterus, unspecified; K74.60 Unspecified cirrhosis of liver; E83.111 Hemochromatosis due to repeated red blood cell transfusions; K72.90 Hepatic failure, unspecified without coma; K52.9 Noninfective gastroenteritis and colitis, unspecified; E83.42 Hypomagnesemia; N83.201 Unspecified ovarian cyst, right side
CPT/HCPCS: 36415; 71045-TC; 71046; 74018; 74181-TC; 76705-TC; 78226; 80048-TC; 80053-TC; 80061-TC; 80074; 80076-TC; 81000-TC; 82105; 82247-TC; 82248-TC; 82272-TC; 82728-TC; 82784; 83516; 83540-TC; 83605-TC; 83690-TC; 83735-TC; 83880; 84100-TC; 84134-TC; 84155; 84165; 84443-TC; 84702-TC; 84703-TC; 85025-TC; 85610-TC; 85652-TC; 85730-TC; 86226; 86334; 86644; 86645; 86663; 86664; 86665; 86694; 86695; 86696; 86701; 86702; 86706; 86787; 86850-TC; 86880-TC; 87045-TC; 87081-TC; 87340; 87536; 87806; 89055; 93307-TC; 93970-TC; 93976-TC; A4216; A9537; G0378; J2543; J3430; J3475; J3480; J3490; J7030; J7050; J7060; J7120; P9017-BL; Q9967